=== PATIENT | male | born 2005 | race Hispanic/Latino ===

== ENCOUNTER 2024-09-02 18:45 | Emergency (ER) | payer OTHER ==
[2024-09-02] MEDS ORDERED: Ondansetron ODT 4 MG TAB ONE (19:52)
[2024-09-02] MEDS ORDERED: Loperamide HCl 2 MG CAP ONE ×2 (19:53→19:54)
== END 2024-09-02 20:16 | disposition home or self-care (01) ==
LOC: CSHERS 18:45
DX: R11.2 Nausea with vomiting, unspecified (principal); R19.7 Diarrhea, unspecified
CPT/HCPCS: 99283; Q0162